=== PATIENT | male | born 1955 | race Caucasian/White ===

== ENCOUNTER → 2019-07-20 | Outpatient (CLI) | payer OTHER ==
[~2019-07-20] MED LIST: GASTROGRAFIN SOLUTION 30ML (Q9963) As Ordered ONE
--- NOTE | 2019-07-20 10:35 | REP ---
CT ABDOMEN WITHOUT IV BUT WITH ORAL CONTRAST: HISTORY: Periumbilical pain. Umbilical pain and burning with 2 cm depression lateral to the umbilicus. CT FINDINGS: Digital preliminary grinder operator surface tool radiograph shows a normal bowel gas pattern. The lung bases are clear on axial CT images. There is mild coronary artery vascular calcification. No adrenal lesion is seen on either side. The liver and the spleen are normal in size, homogeneous in texture. No abnormalities noted in the gallbladder or the pancreas. There is a fairly large calcific plaque at the origin of the right main renal artery. Normal caliber aorta. The kidneys appear morphologically intact. There is a small peripelvic cyst in the lower pole of the left kidney suspected. No hydronephrosis is seen. Small and large bowel loops are unremarkable in the abdomen. A normal appendix is visible retrocecal. No abdominal wall defect is seen. No periumbilical mass or abnormal fluid collection is seen. IMPRESSION: Vascular calcification at the origin of the right renal artery and in the left coronary artery distribution. No abdominal wall mass or hernia is seen. Otherwise negative. Electronically Signed by Shreyas Calderon MD 07/20/2019 01:02 P
== END ==
LOC: M RAD 08:30
PROVIDERS: ATTEND Nurse Practitioner Family
DX: I70.1 Atherosclerosis of renal artery (principal); R10.9 Unspecified abdominal pain
CPT/HCPCS: 74150; Q9963

== ENCOUNTER → 2021-06-20 | Outpatient (CLI) | payer OTHER ==
[~2021-06-20] MED LIST changes: -GASTROGRAFIN SOLUTION 30ML (Q9963) As Ordered ONE; +LEXA1TAB2 PO; +LISI-898 PO; +OMEP1CAP73 PO; +TADA5TAB PO; +ZOCO80TA PO
== END ==
LOC: M LABSMTC 09:11
PROVIDERS: ATTEND Anesthesiology
DX: Z01.818 Encounter for other preprocedural examination (principal); Z11.52 Encounter for screening for COVID-19

== ENCOUNTER 2021-06-25 08:53 | Day surgery (SDC) | payer OTHER ==
[~2021-06-25] VITALS: Ht 177.8 cm; Wt 53.1 kg
[~2021-06-25 08:53] MED LIST changes: +NS 1,000 ML IV ONE
[2021-06-25] MEDS ORDERED: fentaNYL 100 MCG/2 ML INJECTION (J3010) As Ordered ONE (09:42)
[2021-06-25] MEDS ORDERED: LIDOCAINE 2% INJ 100 MG/5 ML SYRINGE As Ordered ONE (09:42)
[2021-06-25] MEDS ORDERED: propofoL 200 MG/20 ML VIAL As Ordered ONE (09:42)
--- NOTE | 2021-06-25 10:55 | ROOR ---
Patient Name: Porfirio Rosenthal Procedure Date: 06/25/2021 10:08 AM Date of : 1955 Age: 65 Room: [facility] Gender: Male Note Status: Finalized Procedure: Upper GI endoscopy Indications: Follow-up of esophageal reflux Providers: Primitivo Castro MD Referring MD: Gretel Sorensen Requesting Provider: Medicines: Monitored Anesthesia Care Complications: No immediate complications. Procedure: Pre-Anesthesia Assessment: - Prior to the procedure, a History and Physical was performed, and patient medications and allergies were reviewed. The patient is competent. The risks and benefits of the procedure and the sedation options and risks were discussed with the patient. All questions were answered and informed consent was obtained. Patient identification and proposed procedure were verified by the physician, the nurse and the construction superintendent in the procedure room. Mental Status Examination: alert and oriented. Airway Examination: normal oropharyngeal airway and neck mobility. Prophylactic Antibiotics: The patient does not require prophylactic antibiotics. Prior Anticoagulants: The patient has taken no previous anticoagulant or antiplatelet agents. ASA Grade Assessment: II - A patient with mild systemic disease. After reviewing the risks and benefits, the patient was deemed in satisfactory condition to undergo the procedure. The anesthesia plan was to use monitored anesthesia care (MAC). Immediately prior to administration of medications, the patient was re-assessed for adequacy to receive sedatives. The heart rate, respiratory rate, oxygen saturations, blood pressure, adequacy of pulmonary ventilation, and response to care were monitored throughout the procedure. The physical status of the patient was re-assessed after the procedure. The Endoscope was introduced through the mouth, and advanced to the second part of duodenum. The upper GI endoscopy was accomplished without difficulty. The patient tolerated the procedure well. Findings: The examined esophagus was normal. The entire examined stomach was normal. The first portion of the duodenum and second portion of the duodenum were normal. Impression: - Normal esophagus. - Normal stomach. - Normal first portion of the duodenum and second portion of the duodenum. - No specimens collected. Recommendation: - Discharge patient to home. - Resume previous diet. - Continue present medications. Procedure Code(s): --- Professional --- 98115, Esophagogastroduodenoscopy, flexible, transoral; diagnostic, including collection of specimen(s) by brushing or washing, when performed (separate procedure) Diagnosis Code(s): --- Professional --- K21.9, Gastro-esophageal reflux disease without esophagitis CPT copyright 2019 [employer]. All rights reserved. The codes documented in this report are preliminary and upon automotive general manager review may be revised to meet current compliance requirements. Primitivo Castro MD Primitivo Castro MD 06/25/2021 10:54:38 AM Electronically signed by Primitivo Castro MD Number of Addenda: 0 Note Initiated On: 06/25/2021 10:08 AM Estimated Blood Loss: Estimated blood loss: none.
--- NOTE | 2021-06-25 11:00 | ROOR ---
Patient Name: Porfirio Rosenthal Procedure Date: 06/25/2021 10:09 AM Date of : 1955 Age: 65 Room: [facility] Gender: Male Note Status: Finalized Procedure: Colonoscopy Indications: Screening for colorectal malignant neoplasm, Last colonoscopy: 2006 Providers: Primitivo Castro MD Referring MD: Gretel Sorensen Requesting Provider: Medicines: Monitored Anesthesia Care Complications: No immediate complications. Procedure: Pre-Anesthesia Assessment: - Prior to the procedure, a History and Physical was performed, and patient medications and allergies were reviewed. The patient is competent. The risks and benefits of the procedure and the sedation options and risks were discussed with the patient. All questions were answered and informed consent was obtained. Patient identification and proposed procedure were verified by the physician, the nurse and the sr. payroll processor in the procedure room. Mental Status Examination: alert and oriented. Prophylactic Antibiotics: The patient does not require prophylactic antibiotics. Prior Anticoagulants: The patient has taken no previous anticoagulant or antiplatelet agents. ASA Grade Assessment: II - A patient with mild systemic disease. After reviewing the risks and benefits, the patient was deemed in satisfactory condition to undergo the procedure. The anesthesia plan was to use monitored anesthesia care (MAC). Immediately prior to administration of medications, the patient was re-assessed for adequacy to receive sedatives. The heart rate, respiratory rate, oxygen saturations, blood pressure, adequacy of pulmonary ventilation, and response to care were monitored throughout the procedure. The physical status of the patient was re-assessed after the procedure. The Colonoscope was introduced through the anus and advanced to the cecum, identified by appendiceal orifice and ileocecal valve. The colonoscopy was performed without difficulty. The patient tolerated the procedure. The quality of the bowel preparation was good. Findings: Hemorrhoids were found on perianal exam. Patient had a thrombosed external hemorrhoid with some bleeding on MARTINEZ. A few small-mouthed diverticula were found in the sigmoid colon. The exam was otherwise without abnormality. Impression: - Hemorrhoids found on perianal exam. - Diverticulosis in the sigmoid colon. - The examination was otherwise normal. - No specimens collected. Recommendation: - Discharge patient to home. - Resume previous diet. - Continue present medications. - Repeat colonoscopy in 10 years for screening purposes. Procedure Code(s): --- Professional --- 19115, Colonoscopy, flexible; diagnostic, including collection of specimen(s) by brushing or washing, when performed (separate procedure) Diagnosis Code(s): --- Professional --- Z12.11, Encounter for screening for malignant neoplasm of colon K64.9, Unspecified hemorrhoids K57.30, Diverticulosis of large intestine without perforation or abscess without bleeding CPT copyright 2019 [employer]. All rights reserved. The codes documented in this report are preliminary and upon resource coordinator review may be revised to meet current compliance requirements. Primitivo Castro MD Primitivo Castro MD 06/25/2021 10:59:54 AM Electronically signed by Primitivo Castro MD Number of Addenda: 0 Note Initiated On: 06/25/2021 10:09 AM Estimated Blood Loss: Estimated blood loss: none.
[2021-06-25 11:15] VITALS: BP 107/63
== END 2021-06-25 11:48 | disposition home or self-care (01) ==
LOC: M OPP 08:53
PROVIDERS: ATTEND Surgery
DX: Z12.11 Encounter for screening for malignant neoplasm of colon (principal); K57.30 Diverticulosis of large intestine without perforation or abscess without bleeding; K64.8 Other hemorrhoids; K21.9 Gastro-esophageal reflux disease without esophagitis
CPT/HCPCS: 43235; 45378; J3010